=== PATIENT | male | born 1935 | race Caucasian/White ===

== ENCOUNTER 2021-06-22 14:02 | Emergency (ER) | payer OTHER ==
[~2021-06-22] VITALS: Ht 167.6 cm; Wt 68.0 kg
[2021-06-22 14:03] VITALS: BP_SYST 149
--- NOTE | 2021-06-22 14:03 | NUR ---
Patient to ER bed 3 to gown for evaluation. Side rails up. Assumed care.
--- NOTE | 2021-06-22 14:10 | NUR ---
Pt. corrine ACLS when his roomates caregiver found him sitting outside, he said he was sitting in sun for heat and he had not eaten nor drank in 2 days, during assessment pt. states he is hungry but not strong enough to go cook, per EMS roommate is pts. GF who is elderly and unable to assist in his care and her caregiver said it was not her job
--- NOTE | 2021-06-22 14:10 | NUR ---
ER at bedside examining patient.
[2021-06-22] MEDS ORDERED: NACL 0.9% 1,000 ML IV ONE (15:30)
[2021-06-22 16:13] LABS: HEMATOCRIT 40.3 % (36-54); MEAN CORPUSCULAR HGB CONC 35 % (32-36); RED BLOOD CELL COUNT(AUTO) 4.25 MIL/uL (4.2-6.2); WHITE BLOOD COUNT (AUTO) 2.6 K/uL (4.8-10.8)
[2021-06-22 16:18] LABS: PROTHROMBIN TIME 10.4 SECS (9.5-12.5)
[2021-06-22 16:20] LABS: ANION GAP 10 (5-15); CALCIUM 8.3 mg/dL (8.4-11.0); CHLORIDE 101 mmol/L (98-107); CREATININE 0.77 mg/dL (0.55-1.30); GLUCOSE 91 mg/dL (70-99); POTASSIUM 3.7 mmol/L (3.5-5.1); SODIUM SERUM 136 mmol/L (136-145); UREA NITROGEN, BLOOD 24 mg/dL (8-21)
[2021-06-22 16:28] LABS: HEMOGLOBIN 14.2 g/dL (14.0-18.0); MEAN CORPUSCULAR HEMOGLOBIN 33 pg (27-31); MEAN CORPUSCULAR VOLUME 95 fL (79.0-98.0); PLATELET COUNT (AUTO) 123 K/uL (130-430); RED CELL DISTRIBUTION WIDTH 13.4 % (9.0-15.0)
[2021-06-22 16:32] LABS: ALANINE AMINOTRANSFERASE 30 U/L (12-78); ASPARTATE AMINOTRANSFERASE 59 U/L (10-37); TOTAL BILIRUBIN 0.6 mg/dL (0.0-1.0)
--- NOTE | 2021-06-22 17:18 | NUR ---
pt. sleeping VSS, NS cont. to infuse
[2021-06-22 17:34] LABS: BILIRUBIN,URINE 1+ (NEGATIVE); COLOR,URINE YELLOW (YELLOW); GLUCOSE,URINE NEGATIVE (NEGATIVE); KETONES,URINE 2+ (NEGATIVE); LEUKOCYTE ESTERASE ,URINE NEGATIVE (NEGATIVE); NITRITE, URINE NEGATIVE (NEGATIVE); PROTEIN URINE TRACE (NEGATIVE); UROBILINOGEN,URINE 0.2 (0.2-1.0)
[2021-06-22] MEDS ORDERED: cefTRIAXone 1 GM IVPB PREMIX 50 ML IV ONE (17:45)
[2021-06-22] MEDS ORDERED: AZITHROMYCIN 500 MG in D5W 250 ML IV ONE (17:45)
[2021-06-22 17:54] LABS: BLOOD, URINE TRACE (NEGATIVE); CLARITY/URINE SLIGHTLY HAZY (CLEAR)
[2021-06-22 17:57] LABS: BARBITURATE, URINE NEGATIVE (NEG <=200); BENZODIAZEPINE, URINE NEGATIVE (NEG <=150); COCAINE, URINE NEGATIVE (NEG <=150); METHAMPHETAMINES SCREEN,URINE NEGATIVE (NEG <=500); URINE AMPHETAMINE NEGATIVE (NEG <=500); URINE METHADONE NEGATIVE (NEG <=200)
[2021-06-22 17:58] LABS: BACTERIA,URINE FEW /HPF (None Seen); CANNABINOID, URINE NEGATIVE (NEG <=50); FINE GRANULAR CASTS,URINE 0-10 /LPF (None Seen); MUCUS,URINE None Seen /LPF (None Seen); OPIATE, URINE NEGATIVE (NEG <=100); PHENCYCLIDINE SCREEN,URINE NEGATIVE (NEG <=25); UR TRICYCLIC ANTIDEPRESSANTS NEGATIVE (NEG <=300); URINE OXYCODONE SCREEN NEGATIVE (NEG <=100); URINE PROPOXYPHENE SCREEN NEGATIVE (NEG <=300)
[2021-06-22] MEDS ORDERED: AZITHROMYCIN 500 MG/VIAL (ZITHROMAX) IV ONE (18:32)
[2021-06-22 19:08] LABS: BAND % (MANUAL) 7 % (0-6); BASOPHILS % (MANUAL) 0 % (0-2); EOSINOPHILS % (MANUAL) 0 % (0-7); LYMPHOCYTES % (MANUAL) 7 % (20-46); MONOCYTES % (MANUAL) 13 % (0-11)
--- NOTE | 2021-06-22 19:59 | NUR ---
assumed care of pt from JENNIFER wood
--- NOTE | 2021-06-22 20:41 | NUR ---
# 20 gauge angiocath placed to R FOREARM. Use of asceptic technique. Opsite placed over site. Blood return noted. Flushed with 10 cc of normal saline. No evidence of infiltration noted. Patient tolerated well.
--- NOTE | 2021-06-22 20:42 | NUR ---
PT GOT UP FROM BED, PULL IV OUT OF HAND AND STARTED STUMBLING IN THE ER. PT BLED ALL OVER ER FLOOR. PLACED BACK IN BED AND IN THE BED
--- NOTE | 2021-06-22 20:45 | NUR ---
ER at bedside examining patient.
[2021-06-22] MEDS ORDERED: predniSONE 20 MG TABLET PO ONE (21:00)
[2021-06-22] MEDS ORDERED: LevALBUTEROL HCL 1.25 MG/0.5 ML *CONC.* VIAL.NEB (XOPENEX CONC.) INH ONE (21:00)
[2021-06-22] MEDS ORDERED: ALBMDI INH (22:23)
[2021-06-22] MEDS ORDERED: ONDA-8 TL (22:23)
--- NOTE | 2021-06-22 22:30 | NUR ---
PT TO BE TRANSFERED BACK HOME BY [facility]. AWAITING [facility]AX[facility]
--- NOTE | 2021-06-23 00:25 | NUR ---
Patient given written and verbal discharge instructions and verbalizes understanding. ER MD discussed with patient the results and treatment provided. Patient in stable condition. ID arm band removed. IV catheter removed intact and dressing applied, no active bleeding. Rx of ZOFRAN, ALBUTEROL given. Patient educated on pain management and to follow up with PMD. Pain Scale 0/10. Opportunity for questions provided and answered. Medication side effect fact sheet provided.
[2021-06-23 00:31] VITALS: BP_SYST 150
== END 2021-06-23 00:25 | disposition home or self-care (01) ==
LOC: SED 14:02
DX: R53.81 Other malaise (principal); Z79.899 Other long term (current) drug therapy
CPT/HCPCS: 36415; 71045; 80053; 80307; 81000; 83605; 85007; 85027; 85610; 85730; 87040; 93005; 94640; 96361; 96365; 96367; 99285; J0456; J0696; J7030; J7512; J7612